=== PATIENT | male | born 1975 | race Caucasian/White ===

== ENCOUNTER 2017-11-30 10:08 | Emergency (ER) | payer OTHER ==
[2017-11-30] MEDS ORDERED: TORAdol 30 mg Injection IM ONE (10:26)
[2017-11-30] MEDS ORDERED: Norflex 60 MG/2 ML IM ONE (10:26)
--- NOTE | 2017-11-30 10:33 | ERPHSYRPT ---
- History of Present Illness Time Seen by Provider: 11/30/17 10:17 Source: patient Physician History: patient with hx of chronic low back pain wth numbness left foot and sciatic pain down left thigh; fell thru deck two weeks ago and aggravated it; has been seeing a chiropractor with relief; slipped on step today and fell backwards striking lower back on step; now burning pain left thigh and foot; no weakness or changes i sensation; no head injury; no seizure; no incontinence; no other complaints Timing/Duration: today, hour(s) (2), constant, sudden Method of Injury: fall Quality: burning Back Pain Location: lumbar spine Back Pain Radiation: upper legs (left) Severity of Pain-Max: severe Severity of Pain-Current: severe Modifying Factors: Improves With: movement (aggravates), rest (helps) Associated Symptoms: numbness in legs/feet (left old no change), lower back pain Previous symptoms: different symptoms, recently seen, recently treated ( chiropractor) Allergies/Adverse Reactions: lidocaine [From Xylocaine] Allergy (Verified 11/30/17 10:15) - Review of Systems Constitutional: No Symptoms Eyes: No Symptoms Ears, Nose, & Throat: No Symptoms Respiratory: No Cough, No Dyspnea, No Wheezing Cardiac: No Chest Pain, No Palpitations, No Syncope Abdominal/Gastrointestinal: No Abdominal Pain, No Nausea, No Vomiting, No Diarrhea Genitourinary Symptoms: No Dysuria, No Frequency, No Hematuria, No Incontinence , No Testicle Pain Musculoskeletal: Back Pain, Fall, Injury (lower back), No Neck Pain, No Joint Redness Skin: No Symptoms Neurological: No Dizziness, No Focal Weakness, No Gait Changes, No Paralysis, No Seizure, No Sensory Changes Psychological: No Symptoms Endocrine: No Symptoms Hematologic/Lymphatic: No Symptoms Immunological/Allergic: No Symptoms - Past Medical History Pertinent Past Medical History: Yes Neurological History: Peripheral Neuropathy (left) Musculoskeletal History: Degenerative Disk Disease Other Medical History: sleep apnea - Past Surgical History Past Surgical History: Yes Musculoskeletal: Other (akle surgery) Other Surgical History: ent tube - Social History Smoking Status: Current every day smoker Exposure to second hand smoke: Yes Alcohol Use: Socially Drug Use: none Patient Lives Alone: No Significant Family History: no pertinent family hx - Female History Hx Now: No - Nursing Vital Signs Nursing Vital Signs: Initial Vital Signs Temperature 98.4 F 11/30/17 10:10 Pulse Rate 112 H 11/30/17 10:10 Respiratory Rate 16 11/30/17 10:10 Blood Pressure 114/92 11/30/17 10:10 O2 Sat by Pulse Oximetry 95 11/30/17 10:10 Pain Scale Pain Intensity 5 - Physical Exam General Appearance: severe distress (back pain position on side), alert, obese Eye Exam: PERRL/EOMI, eyes nml inspection, No photophobia Ears, Nose, Throat Exam: normal ENT inspection, TMs normal, pharynx normal, moist mucous membranes Neck Exam: normal inspection, non-tender, supple, full range of motion, No meningismus, No JVD Respiratory Exam: normal breath sounds, lungs clear, No chest tenderness, No respiratory distress Cardiovascular Exam: regular rate/rhythm, normal heart sounds, normal peripheral pulses, capillary refill <2 sec, No murmur, No edema Gastrointestinal Exam: soft, normal bowel sounds, No tenderness, No distention, No guarding, No rebound, No organomegaly Male Genetalia Exam: normal genitalia Rectal Exam: deferred Back Exam: normal inspection, decreased range of motion, muscle spasm (left lower), No normal range of motion (decreased dut to lwo back pain), No CVA tenderness, No vertebral tenderness, No rash Extremity Exam: normal inspection, normal range of motion, other (pain straight leg raising at 80 on left; refelxes wnl), No pelvis stable, No marisel's sign, No pedal edema Peripheral Pulses: carotid (R): 4+, carotid (L): 4+, femoral (R): 4+, femoral (L ): 4+ Neurologic Exam: alert, oriented x 3, cooperative, 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, normal mood/affect, No nml station & gait (walks flexed due to back pain) Skin Exam: normal color, warm, dry, No rash - Course Nursing assessment & vital signs reviewed: Yes - Radiology Exams L-Spine X-ray Interpretation: Reviewed by me, Teleradiologist Report, Negative Ordered Tests: Active Orders 24 hr Category Date Time Status LUMBAR COMPLETE (MIN 4 VIEWS) Stat Exams 11/30/17 10:26 Completed Medication Summary Discontinued Medications Generic Name Dose Route Start Last Admin Trade Name Freq PRN Reason Stop Dose Admin Ketorolac Tromethamine 60 mg 11/30/17 10:26 11/30/17 11:04 Toradol 30 Mg Injection IM 11/30/17 10:27 60 mg STAT ONE Administration Ketorolac Tromethamine Confirm 11/30/17 10:38 Toradol 30 Mg Injection Administered 11/30/17 10:39 Dose 60 mg .ROUTE .STK-MED ONE Orphenadrine Citrate 60 mg 11/30/17 10:26 11/30/17 11:04 Norflex 60 Mg/2 Ml IM 11/30/17 10:27 60 mg STAT ONE Administration Orphenadrine Citrate Confirm 11/30/17 10:38 Norflex 60 Mg/2 Ml Administered 11/30/17 10:39 Dose 60 mg .ROUTE .STK-MED ONE - Progress Progress: improved, re-examined (after xr and meds) Progress Note: 11/30/17 10:38 pain meds given; xr pending; will recheck after xr 11/30/17 11:07 patient returned for xr; meds given; xr results pending; will recheck 11/30/17 11:29 xr neg for acute fracture; rechecked patient; pain improved and resting; reviewed xr results; treatment plan and instructions given Counseled pt/family regarding: diagnosis, need for follow-up, rad results - Departure Time of Disposition: 11:30 Departure Disposition: Home Clinical Impression: Acute exacerbation of chronic low back pain, Sciatic leg pain Condition: Stable Critical Care Time: No Referrals: DOCTOR,NO FAMILY [Primary Care Provider] - Instructions: Low Back Pain (DC), Sciatica (DC) Additional Instructions: Back pain instructions. Rest, ice x 24-48 hours, then warm compresses; no heavy lifting (>20#'s) x 3-5 days; call [facility] or [facility] Med doctor in am for follow up appointment and or referral as needed. Return if problems. Take meds as prescribed. Follow-up with family doctor as directed. Call for appointment. Return if any problems. If you smoke please stop. Call or follow up with your family doctor for assistance if you need it to stop. Please wear your seatbelt when driving. Have a nice day. Thank you for allowing us to participate in your care today. :o) Dr Christian Gama Prescriptions: Naproxen Sodium [Anaprox Ds] 550 mg PO Q8H PRN PRN #14 tablet PRN Reason: Pain Chlorzoxazone [Parafon Forte Dsc] 500 mg PO QID #20 tablet
[2017-11-30] MEDS ORDERED: TORAdol 30 mg Injection ONE (10:38)
[2017-11-30] MEDS ORDERED: Norflex 60 MG/2 ML ONE (10:38)
--- NOTE | 2017-11-30 11:11 | XRAY ---
Indication: Low back pain following fall. Right leg numbness and tingling. Comparison: None 5 views of the lumbar spine demonstrates 5 lumbar vertebral segments in normal alignment with vertebral body heights and disc spaces maintained. Remote appearing minimal T11 anterior wedging, mild left L5-S1 degenerative facet arthropathy, and mild bilateral SI joint degenerative changes. No other bony, articular, or soft tissue abnormalities.
[2017-11-30 11:40] VITALS: BP 136/70; PULSE 70; O2SAT 97
== END 2017-11-30 11:40 | disposition home or self-care (01) ==
LOC: ED 10:08
DX: M54.42 Lumbago with sciatica, left side (principal); M79.652 Pain in left thigh; R20.0 Anesthesia of skin; W10.9XXA Fall (on) (from) unspecified stairs and steps, initial encounter
CPT/HCPCS: 72110; 96372; 99284; J1885; J2360

== ENCOUNTER 2018-06-04 21:59 | Emergency (ER) | payer MEDICAID, OTHER ==
[2018-06-04] MEDS ORDERED: DUONEB 0.5-3 MG/3 ml Neb IH ONE ×2 (22:07)
[2018-06-04] MEDS ORDERED: solu-MEDROL 125 MG IV ONE (22:09)
--- NOTE | 2018-06-04 22:09 | ERPHSYRPT ---
- History of Present Illness Time Seen by Provider: 06/04/18 22:05 Source: patient Exam Limitations: no limitations Physician History: 43 y/o morbidly obese white male who has a sig smoking hx, presents with worsening soa over a few days. there is associated cough. no sig cp. Severity of Dyspnea-Max: moderate Severity of Dyspnea-Current: moderate Possible Cause: occasional episodes Modifying Factors: Improves With: coughing Associated Symptoms: cough Allergies/Adverse Reactions: lidocaine [From Xylocaine] Allergy (Verified 11/30/17 10:15) Hx Tetanus, Diphtheria Vaccination/Date Given: Yes Hx Influenza Vaccination/Date Given: No Hx Pneumococcal Vaccination/Date Given: No - Review of Systems Constitutional: No Symptoms Eyes: No Symptoms Ears, Nose, & Throat: No Symptoms Respiratory: Cough, Dyspnea Cardiac: No Symptoms Abdominal/Gastrointestinal: No Symptoms, No Abdominal Pain, No Nausea, No Vomiting, No Diarrhea Genitourinary Symptoms: No Symptoms Musculoskeletal: No Symptoms Skin: No Symptoms Neurological: No Symptoms Psychological: No Symptoms Endocrine: No Symptoms Hematologic/Lymphatic: No Symptoms Immunological/Allergic: No Symptoms All Other Systems: Reviewed and Negative - Past Medical History Pertinent Past Medical History: Yes Neurological History: Peripheral Neuropathy ENT History: No Pertinent History Cardiac History: No Pertinent History Respiratory History: No Pertinent History Endocrine Medical History: No Pertinent History Musculoskeletal History: Degenerative Disk Disease GI Medical History: No Pertinent History History: No Pertinent History Psycho-Social History: No Pertinent History Male Reproductive Disorders: No Pertinent History Other Medical History: sleep apnea - Past Surgical History Past Surgical History: Yes Neuro Surgical History: No Pertinent History Cardiac: No Pertinent History Respiratory: No Pertinent History Gastrointestinal: No Pertinent History Genitourinary: No Pertinent History Musculoskeletal: Other Male Surgical History: No Pertinent History Other Surgical History: ent tube - Social History Smoking Status: Current every day smoker How long have you smoked: 20 Exposure to second hand smoke: Yes Alcohol Use: Socially Drug Use: none Patient Lives Alone: No Significant Family History: no pertinent family hx - Nursing Vital Signs Nursing Vital Signs: Initial Vital Signs Temperature 98.2 F 06/04/18 21:59 Pulse Rate 104 H 06/04/18 21:59 Respiratory Rate 20 06/04/18 21:59 Blood Pressure 130/85 06/04/18 21:59 O2 Sat by Pulse Oximetry 95 06/04/18 21:59 Pain Scale Pain Intensity 0 - Physical Exam General Appearance: moderate distress, alert, anxiety, obese Eye Exam: PERRL/EOMI, eyes nml inspection Ears, Nose, Throat Exam: hearing grossly normal, normal pharynx Neck Exam: normal inspection, non-tender, supple, full range of motion Respiratory Exam: normal breath sounds, lungs clear, airway intact, No chest tenderness, No respiratory distress, No accessory muscle use, No rhonchi, No wheezing, No stridor Cardiovascular/Chest Exam: normal heart sounds, tachycardia Abdominal/Gastrointestinal Exam: soft, normal bowel sounds, No tenderness, No guarding, No rebound Rectal Exam: not done Extremity Exam: non-tender, normal range of motion, normal inspection Neurologic Exam: alert, oriented x 3, cooperative, orchid transplanter II-XII nml as tested Skin Exam: normal color, warm, dry Lymphatic Exam: adenopathy SpO2 Interpretation: normal O2 Delivery: Room Air - Course Nursing assessment & vital signs reviewed: Yes Ordered Tests: Active Orders 24 hr Category Date Time Status EKG-ER Only STAT Care 06/04/18 22:09 Active IV Insertion STAT Care 06/04/18 22:09 Active Pulse Oximetry (ED) STAT Care 06/04/18 22:09 Active CHEST 1 VIEW (PORTABLE) Stat Exams 06/04/18 22:09 Taken CBC W DIFF Stat Lab 06/04/18 22:24 Completed CMP Stat Lab 06/04/18 22:24 Completed D-DIMER QUANTITATION Stat Lab 06/04/18 22:24 Completed Lactic Acid Stat Lab 06/04/18 22:09 Results NT PRO BNP Stat Lab 06/04/18 22:24 Completed TROPONIN Q3H Lab 06/04/18 22:24 Completed TROPONIN Q3H Lab 06/05/18 01:15 Ordered TROPONIN Q3H Lab 06/05/18 04:15 Ordered TROPONIN Q3H Lab 06/05/18 07:15 Ordered TROPONIN Q3H Lab 06/05/18 10:15 Ordered Peak Expiratory Flow Rate DAILY RT 06/04/18 22:11 Active Respiratory Therapy Assessment DAILY RT 06/04/18 22:11 Active Medication Summary Discontinued Medications Generic Name Dose Route Start Last Admin Trade Name Freq PRN Reason Stop Dose Admin Albuterol/Ipratropium 3 ml 06/04/18 22:07 06/04/18 22:08 Duoneb 0.5-3 Mg/3 Ml Neb IH 06/04/18 22:08 3 ml STAT ONE Administration Albuterol/Ipratropium Confirm 06/04/18 22:07 Duoneb 0.5-3 Mg/3 Ml Neb Administered 06/04/18 22:08 Dose 3 ml IH .STK-MED ONE Methylprednisolone Sodium Succinate 125 mg 06/04/18 22:09 06/04/18 22:38 Solu-Medrol 125 Mg IV 06/04/18 22:10 125 mg STAT ONE Administration Methylprednisolone Sodium Succinate Confirm 06/04/18 22:33 Solu-Medrol 125 Mg Administered 06/04/18 22:34 Dose 125 mg .ROUTE .STK-MED ONE Lab/Rad Data: Laboratory Result Diagrams 06/04/18 22:24 06/04/18 22:24 Laboratory Results 06/04/18 06/04/18 06/04/18 Range/Units 22:25 22:24 22:24 WBC (4.0-10.5) K/mm3 RBC (4.1-5.6) M/mm3 Hgb (12.5-18.0) gm/dl Hct (42-50) % MCV (78-100) fl MCH (26-32) pg MCHC (32-36) g/dl RDW (11.5-14.0) % Plt Count (150-450) K/mm3 MPV (6-9.5) fl Gran % (36.0-66.0) % Eos # (Auto) (0-0.5) Absolute Lymphs (auto) (1.0-4.6) Absolute Monos (auto) (0.0-1.3) Lymphocytes % (24.0-44.0) % Monocytes % (0.0-12.0) % Eosinophils % (0.00-5.0) % Basophils % (0.0-0.4) % Absolute Granulocytes (1.4-6.9) Basophils # (0-0.4) D-Dimer 305 (215-500) ng/mL Sodium (137-145) mmol/L Potassium (3.5-5.1) mmol/L Chloride (98-107) mmol/L Carbon Dioxide (22-30) mmol/L Anion Gap (5-15) MEQ/L BUN (9-20) mg/dL Creatinine (0.66-1.25) mg/dL Estimated GFR ML/MIN Glucose (74-106) mg/dL Lactic Acid (0.4-2.0) Calcium (8.4-10.2) mg/dL Total Bilirubin (0.2-1.3) mg/dL AST (17-59) U/L ALT (0-50) U/L Alkaline Phosphatase (38-126) U/L Troponin I < 0.012 (0.000-0.034) ng/mL NT-Pro-B Natriuret Pep (0-450) pg/mL Serum Total Protein (6.3-8.2) g/dL Albumin (3.5-5.0) g/dL Influenza Type A Ag NEGATIVE (NEGATIVE) Influenza Type B Ag NEGATIVE (NEGATIVE) RSV (PCR) NEGATIVE (Negative) 06/04/18 06/04/18 06/04/18 Range/Units 22:24 22:24 22:09 WBC 7.9 (4.0-10.5) K/mm3 RBC 5.07 (4.1-5.6) M/mm3 Hgb 15.3 (12.5-18.0) gm/dl Hct 47.1 (42-50) % MCV 92.9 (78-100) fl MCH 30.2 (26-32) pg MCHC 32.5 (32-36) g/dl RDW 13.7 (11.5-14.0) % Plt Count 331 (150-450) K/mm3 MPV 9.9 H (6-9.5) fl Gran % 54.3 (36.0-66.0) % Eos # (Auto) 0.45 (0-0.5) Absolute Lymphs (auto) 2.29 (1.0-4.6) Absolute Monos (auto) 0.84 (0.0-1.3) Lymphocytes % 28.8 (24.0-44.0) % Monocytes % 10.6 (0.0-12.0) % Eosinophils % 5.7 H (0.00-5.0) % Basophils % 0.6 (0.0-0.4) % Absolute Granulocytes 4.31 (1.4-6.9) Basophils # 0.05 (0-0.4) D-Dimer (215-500) ng/mL Sodium 142 (137-145) mmol/L Potassium 4.3 (3.5-5.1) mmol/L Chloride 105 (98-107) mmol/L Carbon Dioxide 27 (22-30) mmol/L Anion Gap 15.0 (5-15) MEQ/L BUN 19 (9-20) mg/dL Creatinine 1.12 (0.66-1.25) mg/dL Estimated GFR > 60.0 ML/MIN Glucose 154 H (74-106) mg/dL Lactic Acid 2.2 H (0.4-2.0) Calcium 9.1 (8.4-10.2) mg/dL Total Bilirubin 0.40 (0.2-1.3) mg/dL AST 28 (17-59) U/L ALT 34 (0-50) U/L Alkaline Phosphatase 89 (38-126) U/L Troponin I (0.000-0.034) ng/mL NT-Pro-B Natriuret Pep 23.4 (0-450) pg/mL Serum Total Protein 7.3 (6.3-8.2) g/dL Albumin 4.0 (3.5-5.0) g/dL Influenza Type A Ag (NEGATIVE) Influenza Type B Ag (NEGATIVE) RSV (PCR) (Negative) - Progress Progress: improved, re-examined Air Movement: good Progress Note: 06/04/18 23:38 pt states he is much better. cxr-no acute process Blood Culture(s) Obtained: No Antibiotics given: No Counseled pt/family regarding: lab results, diagnosis, need for follow-up, rad results - Departure Time of Disposition: 23:38 Departure Disposition: Home Clinical Impression: Bronchitis Condition: Stable Critical Care Time: No Referrals: DOCTOR,NO FAMILY [Primary Care Provider] - Additional Instructions: follow up with primary doctor tomorrow for further management. stop smoking Prescriptions: Albuterol 8 gm Mdi Hfa [Ventolin Hfa MDI] 8 gm IH Q4H #1 [email or web address] Prednisone 10 mg [Deltasone 10 mg] 10 mg PO TID #12 tablet
[2018-06-04 22:28] LABS: BASOPHIL % 0.6 % (0.0-0.4); Basophil (Absolute #) 0.05 (0-0.4); Eosinophil % 5.7 % (0.00-5.0); Eosinophil (Absolute #) 0.45 (0-0.5); Granulocyte Absolute (ANC) 4.31 (1.4-6.9); Granulocytes % 54.3 % (36.0-66.0); Hematocrit 47.1 % (42-50); Hemoglobin 15.3 gm/dl (12.5-18.0); Lymphocyte (Absolute #) 2.29 (1.0-4.6); Lymphocytes % 28.8 % (24.0-44.0); Mean Cell Volume 92.9 fl (78-100); Mean Corpuscular Hemoglobin 30.2 pg (26-32); Mean Corpuscular Hgb Concent. 32.5 g/dl (32-36); Mean Platelet Volume 9.9 fl (6-9.5); Monocyte (Absolute #) 0.84 (0.0-1.3); Monocytes % 10.6 % (0.0-12.0); Platelet Count 331 K/mm3 (150-450); Red Blood Count 5.07 M/mm3 (4.1-5.6); Red Cell Distribution Width 13.7 % (11.5-14.0); White Blood Count 7.9 K/mm3 (4.0-10.5)
[2018-06-04] MEDS ORDERED: solu-MEDROL 125 MG ONE (22:33)
[2018-06-04 22:47] LABS: ALKALINE PHOSPHATASE 89 U/L (38-126); BLOOD UREA NITROGEN 19 mg/dL (9-20); CHLORIDE 105 mmol/L (98-107); Calcium 9.1 mg/dL (8.4-10.2); Carbon Dioxide 27 mmol/L (22-30); Creatinine 1 1.12 mg/dL (0.66-1.25); Glucose 154 mg/dL (74-106); NT PRO BNP 23.4 pg/mL (0-450); Potassium 4.3 mmol/L (3.5-5.1); SGOT/AST 28 U/L (17-59); SGPT/ALT 34 U/L (0-50); SODIUM 142 mmol/L (137-145); Total Protein 7.3 g/dL (6.3-8.2)
[2018-06-04 22:53] LABS: Lactic Acid 2.2 (0.4-2.0)
[2018-06-04 22:59] LABS: INFLUENZA A NEGATIVE (NEGATIVE); INFLUENZA B NEGATIVE (NEGATIVE); RESPIRATORY SYNCTIAL VIRUS NEGATIVE (Negative)
[2018-06-04 23:45] VITALS: PULSE 95
[2018-06-04 23:49] VITALS: BP 113/72; O2SAT 98
--- NOTE | 2018-06-05 08:40 | XRAY ---
Indication: Short of breath. Comparison: None Portable chest demonstrates normal heart, lungs, and bony thorax.
== END 2018-06-04 23:50 | disposition home or self-care (01) ==
LOC: ED 21:59
DX: J40 Bronchitis, not specified as acute or chronic (principal); G62.9 Polyneuropathy, unspecified; G47.30 Sleep apnea, unspecified
CPT/HCPCS: 36000; 36415; 71045; 80053; 83605; 83880; 84484; 85025; 85379; 87631; 93005; 94150; 94640; 96374; 99284; J2930; A9270-GY